=== PATIENT | female | born 1945 | race African-American/Black ===

== ENCOUNTER 2016-11-18 12:48 | Emergency (ER) | payer MEDICARE ==
[~2016-11-18] VITALS: Ht 157.5 cm; Wt 63.5 kg
[2016-11-18 13:58] VITALS: BP 173/98
--- NOTE | 2016-11-18 15:23 | PHYS DOC ---
Past Medical History Past Medical History: Arthritis, Hypertension, Other Additional Past Medical Histor: NEVO FIBROMYTOSIS Past Surgical History: Hysterectomy, Tubal ligation, Other Additional Past Surgical Histo: TUMOR REMOVEDF ROM STOMACH Alcohol Use: None Adult General Chief Complaint Chief Complaint: FOOT INJURY PAIN [facility] HPI Patient is a 71 year old female with a history of neurofibromatosis comes in the emergency room today with complaint of right foot pain secondary to a soft tissue tumor to the plantar surface of her right foot. Patient states that she is called to speak to her primary care doctor but spoke only to the front office nurse and she has not heard back from her. Patient states is been ongoing for approximately a month. Review of Systems Review of Systems Constitutional: Denies fever or chills [] Eyes: Denies change in visual acuity, redness, or eye pain [] HENT: Denies nasal congestion or sore throat [] Respiratory: Denies cough or shortness of breath [] Cardiovascular: No additional information not addressed in HPI [] GI: Denies abdominal pain, nausea, vomiting, bloody stools or diarrhea [] : Denies dysuria or hematuria [] Musculoskeletal: Denies back pain or joint pain [] Integument: Denies rash or skin lesions [] Neurologic: Denies headache, focal weakness or sensory changes [] Endocrine: Denies polyuria or polydipsia [] Allergies Allergies Allergies Uncoded Allergies Type Severity Reaction Last Updated Verified UNKNOWN PAIN MEDICATION (TABLET) Allergy Unknown 11/18/16 Physical Exam Physical Exam Constitutional: Well developed, well nourished, no acute distress, non-toxic appearance. [] HENT: Normocephalic, atraumatic, bilateral external ears normal, oropharynx moist, no oral exudates, nose normal. [] Eyes: PERRLA, EOMI, conjunctiva normal, no discharge. [] Neck: Normal range of motion, no tenderness, supple, no stridor. [] Cardiovascular:Heart rate regular rhythm, no murmur [] Lungs & Thorax: Bilateral breath sounds clear to auscultation [] Abdomen: Bowel sounds normal, soft, no tenderness, no masses, no pulsatile masses. [] Skin: widespread, scattered cutaneous tumors consistent with neurofibromatosis. Back: No tenderness, no CVA tenderness. [] Extremities: Right foot with an approximate 2.5 cm soft tissue tumor to the plantar surface of the first MTPJ of the right foot. There is no inflammation or erythema. There is no purulent drainage Neurologic: Alert and oriented X 3, normal motor function, normal sensory function, no focal deficits noted. [] Psychologic: Affect normal, judgement normal, mood normal. [] Current Patient Data Vital Signs Vital Signs Date Time Temp Pulse Resp B/P Pulse Ox O2 Delivery O2 Flow Rate FiO2 11/18/16 13:58 98 72 22 173/98 98 Room Air 98.0 EKG EKG [] Radiology/Procedures Radiology/Procedures [] Course & Med Decision Making Course & Med Decision Making Pertinent Labs and Imaging studies reviewed. (See chart for details) [] Dragon Disclaimer Dragon Disclaimer This electronic medical record was generated, in whole or in part, using a voice recognition dictation system. Departure Departure Impression: Primary Impression: Foot pain Disposition: 01 HOME, SELF-CARE Condition: GOOD Referrals: UNKNOWN PCP NAME (PCP) Patient Instructions: Musculoskeletal Pain Additional Instructions: 1. As discussed, the pain in your foot is due to the soft tissue tumor. You need to see a mva operator. 2. 2 podiatrists in this area: Archie Yuen and Mynor Pena [phone]. 3. There is no evidence of infection to the soft tissue tumor on the bottom of your foot at this time. Continue to take your medications as prescribed. RADHA CUEVSA Nov 18, 2016 15:23
== END 2016-11-18 15:41 | disposition home or self-care (01) ==
LOC: ER 12:48
DX: M79.671 Pain in right foot (principal); Q85.00 Neurofibromatosis, unspecified; I10 Essential (primary) hypertension; M19.90 Unspecified osteoarthritis, unspecified site
CPT/HCPCS: 99284

== ENCOUNTER 2019-05-31 11:07 | Emergency (ER) | payer MEDICARE, OTHER ==
[~2019-05-31] VITALS: Ht 157.5 cm; Wt 68.9 kg
--- NOTE | 2019-05-31 12:18 | PHYS DOC ---
Past Medical History Past Medical History: Arthritis, Hypertension, Other Additional Past Medical Histor: NEVO FIBROMYTOSIS Past Surgical History: Hysterectomy, Tubal ligation, Other Additional Past Surgical Histo: TUMOR REMOVEDF ROM STOMACH Alcohol Use: None Drug Use: None Adult General Chief Complaint Chief Complaint: OTHER COMPLAINTS HPI HPI Patient is a 73-year-old female who presents with complaint of withdrawing from hydrocodone. Patient states that she has chronic pain and had been on 200 hydrocodone per month and she just recently switched doctors and he decreased her daily dosage to 3 per day, so just 90 tablets per month. She states that that dosage was not adequately managing her pain and she ran out of her medication about a week ago. Patient states that she is feeling very anxious, jittery, nauseated and is having diarrhea. She denies any chest pain or shortness of breath. She states that she feels depressed but has no suicidal ideations. She rates her pain at a 10 out of 10 and states the majority of her pain is in her left hand where she has chronic pain.[] Review of Systems Review of Systems Constitutional: Reports subjective fever[] Respiratory: Denies cough or shortness of breath [] Cardiovascular: No additional information not addressed in HPI [] GI: Denies abdominal pain. Complains of nausea and diarrhea [] Musculoskeletal: Complains of left hand pain [] Neurologic: Denies headache, focal weakness or sensory changes [] All other systems were reviewed and found to be within normal limits, except as documented in this note. Current Medications Current Medications Current Medications Medications (Trade) Dose Ordered Sig/Marlene Start Time Stop Time Status Last Admin Dose Admin Ceftriaxone Sodium (Rocephin) 1 gm 1X ONCE 05/31/19 13:30 05/31/19 13:31 DC 05/31/19 13:39 1 GM Fentanyl Citrate (Fentanyl 2ml Vial) 50 mcg PRN Q15MIN PRN 05/31/19 12:15 06/01/19 12:14 05/31/19 12:49 50 MCG Ondansetron HCl (Zofran) 4 mg 1X ONCE 05/31/19 12:30 05/31/19 12:31 DC 05/31/19 12:48 4 MG Sodium Chloride 1,000 ml @ 1,000 mls/hr Q1H 05/31/19 12:30 05/31/19 13:29 DC 05/31/19 12:50 1,000 MLS/HR Allergies Allergies Allergies Uncoded Allergies Type Severity Reaction Last Updated Verified UNKNOWN PAIN MEDICATION (TABLET) Allergy Unknown 11/18/16 Physical Exam Physical Exam Constitutional: Well developed, well nourished, no acute distress, non-toxic appearance. [] HENT: Normocephalic, atraumatic, bilateral external ears normal, oropharynx moist, no oral exudates, nose normal. [] Eyes: PERRLA, EOMI, conjunctiva normal, no discharge. [] Neck: Normal range of motion, no tenderness, supple, no stridor. [] Cardiovascular: Regular rate and rhythm[] Lungs & Thorax: Bilateral breath sounds clear to auscultation [] Abdomen: Bowel sounds normal, soft, no tenderness. [] Skin: Warm, dry, no erythema, no rash. [] Extremities: No cyanosis, no clubbing, ROM intact. [] Neurologic: Alert and oriented X 3, no focal deficits noted. [] Current Patient Data Vital Signs Vital Signs Date Time Temp Pulse Resp B/P (MAP) Pulse Ox O2 Delivery O2 Flow Rate FiO2 05/31/19 13:39 16 99 05/31/19 13:35 62 163/91 (115) Room Air 05/31/19 11:42 98.7 98.7 Lab Values Laboratory Tests Test 05/31/19 12:15 05/31/19 12:27 Urine Color Yellow Urine Clarity Cloudy Urine pH 5.5 Urine Specific [place] >=1.030 Urine Protein Negative mg/dL (NEG-TRACE) Urine Glucose (UA) Negative mg/dL (NEG) Urine Ketones (Stick) Negative mg/dL (NEG) Urine Blood Trace (NEG) Urine Nitrite Negative (NEG) Urine Bilirubin Negative (NEG) Urine Urobilinogen Dipstick 0.2 mg/dL (0.2 mg/dL) Urine Leukocyte Esterase Large (NEG) Urine RBC 3-5 /HPF (0-2) Urine WBC 20-40 /HPF (0-4) Urine Squamous Epithelial Cells Many /LPF Urine Bacteria Moderate /HPF (0-FEW) Urine Mucus Mod /LPF White Blood Count 4.2 x10^3/uL (4.0-11.0) Red Blood Count 4.22 x10^6/uL (3.50-5.40) Hemoglobin 11.9 g/dL (12.0-15.5) L Hematocrit 35.7 % (36.0-47.0) L Mean Corpuscular Volume 85 fL (79-100) Mean Corpuscular Hemoglobin 28 pg (25-35) Mean Corpuscular Hemoglobin Concent 33 g/dL (31-37) Red Cell Distribution Width 14.7 % (11.5-14.5) H Platelet Count 219 x10^3/uL (140-400) Neutrophils (%) (Auto) 40 % (31-73) Lymphocytes (%) (Auto) 48 % (24-48) Monocytes (%) (Auto) 10 % (0-9) H Eosinophils (%) (Auto) 1 % (0-3) Basophils (%) (Auto) 1 % (0-3) Neutrophils # (Auto) 1.7 x10^3/uL (1.8-7.7) L Lymphocytes # (Auto) 2.0 x10^3/uL (1.0-4.8) Monocytes # (Auto) 0.4 x10^3/uL (0.0-1.1) Eosinophils # (Auto) 0.0 x10^3/uL (0.0-0.7) Basophils # (Auto) 0.0 x10^3/uL (0.0-0.2) Sodium Level 143 mmol/L (136-145) Potassium Level 3.4 mmol/L (3.5-5.1) L Chloride Level 110 mmol/L (98-107) H Carbon Dioxide Level 25 mmol/L (21-32) Anion Gap 8 (6-14) Blood Urea Nitrogen 6 mg/dL (7-20) L Creatinine 0.6 mg/dL (0.6-1.0) Estimated GFR (Cockcroft-Gault) 117.9 BUN/Creatinine Ratio 10 (6-20) Glucose Level 95 mg/dL (70-99) Calcium Level 8.7 mg/dL (8.5-10.1) Total Bilirubin 0.7 mg/dL (0.2-1.0) Aspartate Amino Transferase (AST) 14 U/L (15-37) L Alanine Aminotransferase (ALT) 14 U/L (14-59) Alkaline Phosphatase 55 U/L (46-116) Total Protein 7.0 g/dL (6.4-8.2) Albumin 3.4 g/dL (3.4-5.0) Albumin/Globulin Ratio 0.9 (1.0-1.7) L Lipase 35 U/L (73-393) L Laboratory Tests 05/31/19 12:27 Laboratory Tests 05/31/19 12:27 EKG EKG [] Interpretation Time: EKG demonstrates sinus rhythm with rate of 59. Radiology/Procedures Radiology/Procedures [] Impressions: PROCEDURE: CT HEAD WO CONTRAST CT HEAD WO CONTRAST Indication: Headache. Fever and body aches. Withdrawal symptoms. Exposure: One or more of the following individualized dose reduction techniques were utilized for this examination: 1. Automated exposure control 2. Adjustment of the mA and/or kV according to patient size 3. Use of iterative reconstruction technique. Technique: Standard imaging without intravenous contrast. Comparison: None FINDINGS: No acute intracranial hemorrhage, mass effect, midline shift or abnormal extra-axial fluid collection. Mild prominence of ventricles and sulci compatible with atrophy. Low-density in the white matter bilaterally, a nonspecific finding, but which is commonly due to chronic small vessel ischemic disease in a patient of this age. Visualized orbits appear unremarkable. Numerous small nodules are seen throughout the scalp soft tissues. Visualized sinuses are clear. No evidence of acute skull abnormality. IMPRESSION: 1. No evidence of acute intracranial hemorrhage. 2. Innumerable small nodules identified throughout the visualized scalp. These are presumably related to the patient's history of neurofibromatosis. Electronically signed by: Napoleon Canseco MD (05/31/2019 1:46 PM) [facility] Course & Med Decision Making Course & Med Decision Making Pertinent Labs and Imaging studies reviewed. (See chart for details) [] Dragon Disclaimer Dragon Disclaimer This electronic medical record was generated, in whole or in part, using a voice recognition dictation system. Departure Departure Impression: Primary Impression: UTI (urinary tract infection) Additional Impression: Chronic pain Disposition: 01 HOME, SELF-CARE Condition: STABLE Referrals: CONRADO KAHN (PCP) Patient Instructions: Chronic Pain, Urinary Tract Infection Scripts Ciprofloxacin Hcl (CIPROFLOXACIN HCL) 500 Mg Tablet 1 TAB PO BID, #14 TAB Prov: OXANA RAYGOZA Jr. DO 05/31/19 Oxycodone/Apap 5-325 (PERCOCET 5-325 MG TABLET ) 1 Each Tablet 1 EACH PO Q6HRS PRN for PAIN, #12 TAB pain Prov: OXANA RAYGOZA Jr. DO 05/31/19 Problem Qualifiers Primary Impression: UTI (urinary tract infection) Urinary tract infection type: site unspecified Hematuria presence: without hematuria Qualified Codes: N39.0 - Urinary tract infection, site not specified Additional Impression: Chronic pain Chronic pain type: other chronic pain Qualified Codes: G89.29 - Other chronic pain OXANA RAYGOZA Jr. DO May 31, 2019 12:18
[2019-05-31 12:23] LABS: BILIRUBIN,URINE NEGATIVE (NEG); CLARITY,URINE CLOUDY; COLOR,URINE YELLOW; NITRITE,URINE NEGATIVE (NEG); PH,URINE 5.5; PROTEIN,URINE NEGATIVE (NEG-TRACE); UROBILINOGEN,URINE 0.2 mg/dL (0.2 mg/dL)
[2019-05-31] MEDS ORDERED: ONDANSETRON PF 4 MG/2 ML VIAL. IV ONE (12:30)
[2019-05-31] MEDS ORDERED: IV NORMAL SALINE 1000ML BAG 1,000 ML IV SCH (12:30)
[2019-05-31 12:34] LABS: SQUAMOUS EPITHELIAL CELL,UR MANY /LPF
[2019-05-31 12:35] LABS: BACTERIA,URINE MODERATE /HPF (0-FEW); WBC,URINE 20-40 /HPF (0-4)
[2019-05-31 12:45] LABS: BASO % 1 % (0-3); EOS % 1 % (0-3); HEMATOCRIT 35.7 % (36.0-47.0); HEMOGLOBIN 11.9 g/dL (12.0-15.5); LYMPH % 48 % (24-48); MEAN CORPUSCULAR HEMOGLOBIN 28 pg (25-35); MEAN CORPUSCULAR HGB CONC 33 g/dL (31-37); MEAN CORPUSCULAR VOLUME 85 fL (79-100); MONO # 0.4 x10^3/uL (0.0-1.1); MONO % 10 % (0-9); NEUT # 1.7 x10^3/uL (1.8-7.7); NEUT % 40 % (31-73); PLATELET COUNT 219 x10^3/uL (140-400); RED BLOOD COUNT 4.22 x10^6/uL (3.50-5.40); RED CELL DISTRIBUTION WIDTH 14.7 % (11.5-14.5); WHITE BLOOD COUNT 4.2 x10^3/uL (4.0-11.0)
[2019-05-31] MEDS: fentaNYL PF VIAL 100 MCG/2 ML VIAL IV PRN ×2 (12:49→15:00)
[2019-05-31 13:14] LABS: CALCIUM 8.7 mg/dL (8.5-10.1); CREATININE 0.6 mg/dL (0.6-1.0); GFR 117.9; POTASSIUM 3.4 mmol/L (3.5-5.1)
[2019-05-31 13:16] LABS: ALBUMIN 3.4 g/dL (3.4-5.0); ALBUMIN/GLOBULIN RATIO 0.9 (1.0-1.7); TOTAL BILIRUBIN 0.7 mg/dL (0.2-1.0)
[2019-05-31] MEDS ORDERED: cefTRIAXone IV Push 1 GM VIAL. IVP ONE (13:30)
--- NOTE | 2019-05-31 13:48 | RAD ---
CT HEAD WO CONTRAST Indication: Headache. Fever and body aches. Withdrawal symptoms. Exposure: One or more of the following individualized dose reduction techniques were utilized for this examination: 1. Automated exposure control 2. Adjustment of the mA and/or kV according to patient size 3. Use of iterative reconstruction technique. Technique: Standard imaging without intravenous contrast. Comparison: None FINDINGS: No acute intracranial hemorrhage, mass effect, midline shift or abnormal extra-axial fluid collection. Mild prominence of ventricles and sulci compatible with atrophy. Low-density in the white matter bilaterally, a nonspecific finding, but which is commonly due to chronic small vessel ischemic disease in a patient of this age. Visualized orbits appear unremarkable. Numerous small nodules are seen throughout the scalp soft tissues. Visualized sinuses are clear. No evidence of acute skull abnormality. IMPRESSION: 1. No evidence of acute intracranial hemorrhage. 2. Innumerable small nodules identified throughout the visualized scalp. These are presumably related to the patient's history of neurofibromatosis. Electronically signed by: Napoleon Canseco MD (05/31/2019 1:46 PM) [id number]
[2019-05-31] MEDS ORDERED: OXYC1TAB15 PO (14:35)
[2019-05-31] MEDS ORDERED: CIPR500T PO (14:35)
[2019-05-31 15:00] VITALS: BP 169/98
--- NOTE | 2019-05-31 15:36 | EKG ---
[facility] [address] [place] [address] Test Date: 2019-05-31 Test Time: 13:11:38 Pat Name: ALBERT HOLCOMB Department: Room: Gender: F Med Surg Nurse: : 1945 Requested By: OXANA RAYGOZA Order Number: [id number] Reading MD: Karthik Ellis MD Measurements Intervals [place] Rate: 59 P: 0 MN: 162 QRS: -15 QRSD: 90 T: 12 QT: 440 QTc: 436 Interpretive Statements SINUS RHYTHM Electronically Signed On 06-11-2019 10:12:08 CDT by Karthik Ellis MD
== END 2019-05-31 15:20 | disposition home or self-care (01) ==
LOC: ER 11:07
DX: G89.29 Other chronic pain (principal); N39.0 Urinary tract infection, site not specified; R19.7 Diarrhea, unspecified; R11.0 Nausea; M79.642 Pain in left hand; M19.90 Unspecified osteoarthritis, unspecified site; I10 Essential (primary) hypertension; Z90.710 Acquired absence of both cervix and uterus; Z98.51 Tubal ligation status
CPT/HCPCS: 36415; 70450; 80053; 81001; 83690; 85025; 87086; 93005; 96361; 96374; 96375; 99285; J0696; J2405; J3010; J7030

== ENCOUNTER 2019-06-25 14:33 | Emergency (ER) | payer OTHER ==
[~2019-06-25] VITALS: Ht 165.1 cm; Wt 68.0 kg
[~2019-06-25 14:33] MED LIST: CIPR500T PO; OXYC1TAB15 PO
[2019-06-25] MEDS ORDERED: fentaNYL PF VIAL 100 MCG/2 ML VIAL IV STA (16:05)
[2019-06-25] MEDS ORDERED: ONDANSETRON PF 4 MG/2 ML VIAL. IV ONE (16:15)
[2019-06-25] MEDS ORDERED: IV NORMAL SALINE 1000ML BAG 1,000 ML IV ONE (16:15)
[2019-06-25 16:16] LABS: BASO # 0.1 x10^3/uL (0.0-0.2); BASO % 1 % (0-3); EOS % 0 % (0-3); HEMATOCRIT 39.5 % (36.0-47.0); HEMOGLOBIN 12.9 g/dL (12.0-15.5); LYMPH # 1.9 x10^3/uL (1.0-4.8); LYMPH % 37 % (24-48); MEAN CORPUSCULAR HEMOGLOBIN 28 pg (25-35); MEAN CORPUSCULAR HGB CONC 33 g/dL (31-37); MEAN CORPUSCULAR VOLUME 84 fL (79-100); MONO # 0.4 x10^3/uL (0.0-1.1); MONO % 8 % (0-9); NEUT # 2.7 x10^3/uL (1.8-7.7); NEUT % 53 % (31-73); PLATELET COUNT 273 x10^3/uL (140-400); RED BLOOD COUNT 4.68 x10^6/uL (3.50-5.40); RED CELL DISTRIBUTION WIDTH 14.9 % (11.5-14.5)
[2019-06-25 16:27] LABS: CREATININE 0.6 mg/dL (0.6-1.0); GFR 117.9; POTASSIUM 3.6 mmol/L (3.5-5.1)
[2019-06-25] MEDS ORDERED: IOHEXOL 300 MG/ML 100ML VIAL. IV ONE (16:30)
[2019-06-25] MEDS ORDERED: CONTRAST GIVEN. MC PRN (16:30)
--- NOTE | 2019-06-25 16:31 | PHYS DOC ---
Past Medical History Past Medical History: Arthritis, Hypertension, Other Additional Past Medical Histor: NEVO FIBROMYTOSIS (NAPOLEON GRAVES APRN) Past Surgical History: Hysterectomy, Tubal ligation, Other Additional Past Surgical Histo: TUMOR REMOVED FROM STOMACH (NAPOLEON GRAVES APRN) Alcohol Use: None Drug Use: None (NAPOLEON GRAVES APRN) Attending Signature I have participated in the care of this patient and I have reviewed and agree with all pertinent clinical information above including history, exam, and recommendations. (JAMEY RIVERA MD) Adult General Chief Complaint Chief Complaint: WEAKNESS/GENERALIZED HPI HPI Patient is a 73 year old female that presents to the emergency Department with multiple complaints. The patient has a history of neurofibromitosis. The patient states she ran out of her pain medicine after her doctor stop prescribing to her. She states that she also is been having weakness since yesterday. She states she felt hot and cold, and states she's been having abdominal pain. The patient rates her pain as 8 out of 10 in severity. The patient also states she's been having difficulty taking full breaths. (NAPOLEON GRAVES APRN) Review of Systems Review of Systems Constitutional: Denies fever or chills. Reports weakness. Eyes: Denies change in visual acuity, redness, or eye pain [] HENT: Denies nasal congestion or sore throat [] Respiratory: Reports SOB. Denies cough. Cardiovascular: No additional information not addressed in HPI [] GI: Reports abdominal pain, nausea, vomiting, Denies bloody stools or diarrhea [] : Denies dysuria or hematuria [] Musculoskeletal: Denies back pain or joint pain [] Integument: Denies rash or skin lesions [] Neurologic: Denies headache, focal weakness or sensory changes [] Endocrine: Denies polyuria or polydipsia [] Complete systems were reviewed and found to be within normal limits, except as documented in this note. (NAPOLEON GRAVES APRN) Current Medications Current Medications Current Medications Medications (Trade) Dose Ordered Sig/Malrene Start Time Stop Time Status Last Admin Dose Admin Fentanyl Citrate (Fentanyl 2ml Vial) 100 mcg 1X STAT 06/25/19 16:05 06/25/19 16:08 DC 06/25/19 16:36 100 MCG Info (CONTRAST GIVEN -- Rx MONITORING) 1 each PRN DAILY PRN 06/25/19 16:30 06/25/19 19:13 DC Iohexol (Omnipaque 300 Mg/ml) 75 ml 1X ONCE 06/25/19 16:30 06/25/19 16:31 DC 06/25/19 16:30 75 ML Ondansetron HCl (Zofran) 4 mg 1X ONCE 06/25/19 16:15 06/25/19 16:16 DC 06/25/19 16:35 4 MG Sodium Chloride 1,000 ml @ 1,000 mls/hr 1X ONCE 06/25/19 16:15 06/25/19 17:14 DC 06/25/19 16:35 1,000 MLS/HR (JAMEY RIVERA MD) Allergies Allergies Allergies Uncoded Allergies Type Severity Reaction Last Updated Verified UNKNOWN PAIN MEDICATION (TABLET) Allergy Unknown 11/18/16 (JAMEY RIVERA MD) Physical Exam Physical Exam Constitutional: Well developed, well nourished, no acute distress, non-toxic appearance. [] HENT: Normocephalic, atraumatic, bilateral external ears normal, oropharynx moist, no oral exudates, nose normal. [] Eyes: PERRLA, EOMI, conjunctiva normal, no discharge. [] Neck: Normal range of motion, no tenderness, supple, no stridor. [] Cardiovascular:Heart rate regular rhythm, no murmur [] Lungs & Thorax: Bilateral breath sounds clear to auscultation but diminished. Abdomen: Bowel sounds normal, soft, diffuse tenderness, no masses, no pulsatile masses. [] Skin: Warm, dry, no erythema, no rash. [] Back: No tenderness, no CVA tenderness. [] Extremities: No tenderness, no cyanosis, no clubbing, ROM intact, no edema. [] Neurologic: Alert and oriented X 3, normal motor function, normal sensory function, no focal deficits noted. [] Psychologic: Affect normal, judgement normal, mood normal. [] (NAPOLEON GRAVES APRN) Current Patient Data Vital Signs Vital Signs Date Time Temp Pulse Resp B/P (MAP) Pulse Ox O2 Delivery O2 Flow Rate FiO2 06/25/19 18:00 78 16 100 06/25/19 16:36 Room Air 06/25/19 15:00 97.8 169/96 (120) 97.8 (JAMEY RIVERA MD) Lab Values Laboratory Tests Test 06/25/19 15:40 06/25/19 16:30 White Blood Count 5.0 x10^3/uL (4.0-11.0) Red Blood Count 4.68 x10^6/uL (3.50-5.40) Hemoglobin 12.9 g/dL (12.0-15.5) Hematocrit 39.5 % (36.0-47.0) Mean Corpuscular Volume 84 fL (79-100) Mean Corpuscular Hemoglobin 28 pg (25-35) Mean Corpuscular Hemoglobin Concent 33 g/dL (31-37) Red Cell Distribution Width 14.9 % (11.5-14.5) H Platelet Count 273 x10^3/uL (140-400) Neutrophils (%) (Auto) 53 % (31-73) Lymphocytes (%) (Auto) 37 % (24-48) Monocytes (%) (Auto) 8 % (0-9) Eosinophils (%) (Auto) 0 % (0-3) Basophils (%) (Auto) 1 % (0-3) Neutrophils # (Auto) 2.7 x10^3/uL (1.8-7.7) Lymphocytes # (Auto) 1.9 x10^3/uL (1.0-4.8) Monocytes # (Auto) 0.4 x10^3/uL (0.0-1.1) Eosinophils # (Auto) 0.0 x10^3/uL (0.0-0.7) Basophils # (Auto) 0.1 x10^3/uL (0.0-0.2) Sodium Level 145 mmol/L (136-145) Potassium Level 3.6 mmol/L (3.5-5.1) Chloride Level 106 mmol/L (98-107) Carbon Dioxide Level 26 mmol/L (21-32) Anion Gap 13 (6-14) Blood Urea Nitrogen 10 mg/dL (7-20) Creatinine 0.6 mg/dL (0.6-1.0) Estimated GFR (Cockcroft-Gault) 117.9 BUN/Creatinine Ratio 17 (6-20) Glucose Level 102 mg/dL (70-99) H Calcium Level 9.0 mg/dL (8.5-10.1) Total Bilirubin 0.9 mg/dL (0.2-1.0) Aspartate Amino Transferase (AST) 14 U/L (15-37) L Alanine Aminotransferase (ALT) 11 U/L (14-59) L Alkaline Phosphatase 70 U/L (46-116) Total Protein 7.8 g/dL (6.4-8.2) Albumin 4.0 g/dL (3.4-5.0) Albumin/Globulin Ratio 1.1 (1.0-1.7) Urine Collection Type Unknown Urine Color Yellow Urine Clarity Clear Urine pH 5.5 Urine Specific [place] 1.020 Urine Protein Negative mg/dL (NEG-TRACE) Urine Glucose (UA) Negative mg/dL (NEG) Urine Ketones (Stick) Trace mg/dL (NEG) Urine Blood Negative (NEG) Urine Nitrite Negative (NEG) Urine Bilirubin Negative (NEG) Urine Urobilinogen Dipstick 0.2 mg/dL (0.2 mg/dL) Urine Leukocyte Esterase Negative (NEG) Urine RBC Occ /HPF (0-2) Urine WBC Occ /HPF (0-4) Urine Squamous Epithelial Cells Many /LPF Urine Bacteria Few /HPF (0-FEW) Urine Mucus Marked /LPF Laboratory Tests 06/25/19 15:40 Laboratory Tests 06/25/19 15:40 (JAMEY RIVERA MD) EKG EKG [] (NAPOLEON GRAVES APRN) Radiology/Procedures Radiology/Procedures []IMAGING REPORT Signed PATIENT: ALBERT HOLCOMB V ACCOUNT: [id number] : 1945 LOCATION: ER AGE: 73 SEX: F EXAM STATUS: REG ER ORD. PHYSICIAN: NAPOLEON GRAVES APRN REASON: abd pain PROCEDURE: CT ABD PELV W/ IV CONTRST ONLY CT ABD PELV W/ IV CONTRST ONLY Indication: Abdominal pain. History of neurofibromatosis. Exposure: One or more of the following individualized dose reduction techniques were utilized for this examination: 1. Automated exposure control 2. Adjustment of the mA and/or kV according to patient size 3. Use of iterative reconstruction technique. Technique: Intravenous contrast was given. No oral contrast per request. Findings: Numerous widespread soft tissue nodules are identified throughout, subcutaneously and at the skin. There are also numerous areas of skin thickening. Lung bases are clear. Coronary artery calcifications are identified. No evidence of liver lesion. Spleen not enlarged. Partial fatty atrophy of the pancreas without evidence of acute abnormality. No evidence of adrenal mass. Kidneys demonstrate symmetric enhancement. No hydronephrosis. Low-density lesion in the upper pole the left kidney measures 2 cm and 18 Hounsfield units, most likely a cyst. No calcified gallstone. Mild gallbladder wall thickening. No gross gallbladder distention. No pericholecystic fluid or stranding. The aorta is mildly calcified and tortuous without evidence of aneurysm. No significant retroperitoneal, mesenteric or inguinal lymph node enlargement. Surgical small sutures at the stomach. No significant small bowel distention. Wall thickening of the rectum and distal sigmoid colon. Milder wall thickening of the descending and proximal sigmoid colon which may just be due to lack of distention. No acute paracolonic fatty stranding is seen. The appendix is normal. There appears to be some surgical suture within bowel. Midline anterior abdominal wall hernia containing a single segment of protruding bowel. No evidence of ascites. No evidence of pneumoperitoneum. Urinary bladder appears grossly unremarkable, not very distended. No evidence of pelvic mass. Degenerative changes of the spine. Transitional anatomy at the lumbosacral junction with what is counted as a lumbarized S1 segment. Mild anterior subluxation of what is considered L4 and L5. Vertebral body height is maintained. Soft tissue lesion is identified within the right neural foramen of what is considered S2 with smooth indolent expansion of the foramen which measures 2.5 cm diameter. This is compatible with a mass such as a neurofibroma. IMPRESSION: 1. Soft tissue mass within the right upper sacral neural foramen, likely S2 suspicious for neurofibroma, with chronic appearing expansion of the neural foramen. MR could further evaluate as indicated. 2. Numerous soft tissue and skin nodules and areas of thickening, likely related to neurofibromatosis. 3. Small left renal lesion, most likely a cyst. 4. Mild gallbladder wall thickening, uncertain significance, correlate for cholecystitis. No evidence of calcified stone or gross gallbladder distention. 5. Wall thickening of the rectum and distal sigmoid colon, could indicate mild colitis. Mild wall thickening of the more proximal colon may just be due to nondistention. 6. Findings were discussed with Dr. Graves in the emergency room at the time of this report. Electronically signed by: Napoleon Canseco MD (06/25/2019 5:42 PM) [facility] DICTATED and SIGNED BY: NAPOLEON CANSECO MD DATE: 06/25/19 174 (NAPOLEON GRAVES APRN) Course & Med Decision Making Course & Med Decision Making Pertinent Labs and Imaging studies reviewed. (See chart for details) Will get labs, UA, Chest x-ray, CT, and give supportive care. CT is unremarkable for acute changes. Might have mild colitis. Does not have RUQ abdominal pain, Cholecystitis is unlikely. Labs look unremarkable. Chest X-ray is unremarkable for acute changes. Will d/c home. (NAPOLEON GRAVES APRN) Dragon Disclaimer Dragon Disclaimer This electronic medical record was generated, in whole or in part, using a voice recognition dictation system. (NAPOLEON GRAVES APRN) Departure Departure Impression: Primary Impression: Weakness Disposition: HOME, SELF-CARE Condition: STABLE Referrals: CONRADO KAHN (PCP) Patient Instructions: Weakness Additional Instructions: Thank you for visiting [facility]. We appreciate you trusting us with your care. If any additional problems come up don't hesitate to return to visit us. Please follow up with your primary care provider so they can plan add itional care if needed and know about the problem that you had. If symptoms worsen come back to the Emergency Department. Any concerning symptoms that start such as chest pain, shortness of air, weakness or numbness on one side of the body, running high fevers or any other concerning symptoms return to the ER. NAPOLEON GRAVES APRN Jun 25, 2019 16:31 JAMEY RIVERA MD Jun 28, 2019 06:17
[2019-06-25 16:32] LABS: ALBUMIN/GLOBULIN RATIO 1.1 (1.0-1.7); TOTAL BILIRUBIN 0.9 mg/dL (0.2-1.0); TOTAL PROTEIN 7.8 g/dL (6.4-8.2)
[2019-06-25 16:36] LABS: BILIRUBIN,URINE NEGATIVE (NEG); CLARITY,URINE CLEAR; COLOR,URINE YELLOW; NITRITE,URINE NEGATIVE (NEG); PH,URINE 5.5; PROTEIN,URINE NEGATIVE (NEG-TRACE); UROBILINOGEN,URINE 0.2 mg/dL (0.2 mg/dL)
[2019-06-25 16:55] LABS: BACTERIA,URINE FEW /HPF (0-FEW); RBC,URINE OCC /HPF (0-2); SQUAMOUS EPITHELIAL CELL,UR MANY /LPF; WBC,URINE OCC /HPF (0-4)
--- NOTE | 2019-06-25 17:46 | RAD ---
CT ABD PELV W/ IV CONTRST ONLY Indication: Abdominal pain. History of neurofibromatosis. Exposure: One or more of the following individualized dose reduction techniques were utilized for this examination: 1. Automated exposure control 2. Adjustment of the mA and/or kV according to patient size 3. Use of iterative reconstruction technique. Technique: Intravenous contrast was given. No oral contrast per request. Findings: Numerous widespread soft tissue nodules are identified throughout, subcutaneously and at the skin. There are also numerous areas of skin thickening. Lung bases are clear. Coronary artery calcifications are identified. No evidence of liver lesion. Spleen not enlarged. Partial fatty atrophy of the pancreas without evidence of acute abnormality. No evidence of adrenal mass. Kidneys demonstrate symmetric enhancement. No hydronephrosis. Low-density lesion in the upper pole the left kidney measures 2 cm and 18 Hounsfield units, most likely a cyst. No calcified gallstone. Mild gallbladder wall thickening. No gross gallbladder distention. No pericholecystic fluid or stranding. The aorta is mildly calcified and tortuous without evidence of aneurysm. No significant retroperitoneal, mesenteric or inguinal lymph node enlargement. Surgical small sutures at the stomach. No significant small bowel distention. Wall thickening of the rectum and distal sigmoid colon. Milder wall thickening of the descending and proximal sigmoid colon which may just be due to lack of distention. No acute paracolonic fatty stranding is seen. The appendix is normal. There appears to be some surgical suture within bowel. Midline anterior abdominal wall hernia containing a single segment of protruding bowel. No evidence of ascites. No evidence of pneumoperitoneum. Urinary bladder appears grossly unremarkable, not very distended. No evidence of pelvic mass. Degenerative changes of the spine. Transitional anatomy at the lumbosacral junction with what is counted as a lumbarized S1 segment. Mild anterior subluxation of what is considered L4 and L5. Vertebral body height is maintained. Soft tissue lesion is identified within the right neural foramen of what is considered S2 with smooth indolent expansion of the foramen which measures 2.5 cm diameter. This is compatible with a mass such as a neurofibroma. IMPRESSION: 1. Soft tissue mass within the right upper sacral neural foramen, likely S2 suspicious for neurofibroma, with chronic appearing expansion of the neural foramen. MR could further evaluate as indicated. 2. Numerous soft tissue and skin nodules and areas of thickening, likely related to neurofibromatosis. 3. Small left renal lesion, most likely a cyst. 4. Mild gallbladder wall thickening, uncertain significance, correlate for cholecystitis. No evidence of calcified stone or gross gallbladder distention. 5. Wall thickening of the rectum and distal sigmoid colon, could indicate mild colitis. Mild wall thickening of the more proximal colon may just be due to nondistention. 6. Findings were discussed with Dr. Maier in the emergency room at the time of this report. Electronically signed by: Napoleon Canseco MD (06/25/2019 5:42 PM) [facility]
[2019-06-25 18:00] VITALS: BP 174/95
--- NOTE | 2019-06-25 20:15 | RAD ---
PA and lateral chest radiographs 06/25/2019 CLINICAL HISTORY: Shortness of breath. History of neurofibromatosis. PA and lateral digital radiographs of the chest were obtained. No previous studies are available for comparison. The cardiac silhouette is borderline enlarged. The thoracic aorta is tortuous. No acute pulmonary infiltrate is seen. No pneumothorax or pleural effusion is seen. Very mild S-shaped curvature of the thoracolumbar spine is noted. Multiple mass lesions are seen throughout the neck and soft tissues of the chest consistent with the patient's history of neurofibromatosis. IMPRESSION: No acute abnormality is seen. Electronically signed by: Kingston Chávez MD (06/25/2019 8:12 PM) [facility]
== END 2019-06-25 18:50 | disposition home or self-care (01) ==
LOC: ER 14:33
DX: R53.1 Weakness (principal); R10.84 Generalized abdominal pain; R11.2 Nausea with vomiting, unspecified; I10 Essential (primary) hypertension; Z90.710 Acquired absence of both cervix and uterus; Z98.51 Tubal ligation status
CPT/HCPCS: 36415; 71046; 74177; 80053; 81001; 85025; 96361; 96374; 96375; 99285; J2405; J3010; J7030; Q9967

== ENCOUNTER 2019-07-13 18:46 | Inpatient (IN) | payer OTHER ==
[~2019-07-13] VITALS: Ht 162.6 cm; Wt 69.9 kg
[2019-07-13] MEDS ORDERED: ONDANSETRON PF 4 MG/2 ML VIAL. IV ONE (20:00)
[2019-07-13] MEDS ORDERED: ASPIRIN CHEWABLE 81 MG TABLET. PO ONE (20:00)
[2019-07-13] MEDS: MORPHINE SULFATE 2 MG/ML VIAL. IV/SQ PRN ×2 (20:06→21:54)
[2019-07-13 20:19] LABS: BASO % 1 % (0-3); EOS % 1 % (0-3); HEMATOCRIT 33.2 % (36.0-47.0); HEMOGLOBIN 10.7 g/dL (12.0-15.5); LYMPH # 2.6 x10^3/uL (1.0-4.8); LYMPH % 50 % (24-48); MEAN CORPUSCULAR HEMOGLOBIN 27 pg (25-35); MEAN CORPUSCULAR HGB CONC 32 g/dL (31-37); MEAN CORPUSCULAR VOLUME 85 fL (79-100); MONO # 0.6 x10^3/uL (0.0-1.1); MONO % 11 % (0-9); NEUT % 38 % (31-73); PLATELET COUNT 226 x10^3/uL (140-400); RED BLOOD COUNT 3.91 x10^6/uL (3.50-5.40); WHITE BLOOD COUNT 5.2 x10^3/uL (4.0-11.0)
--- NOTE | 2019-07-13 20:34 | RAD ---
Indication:Chest pain. TECHNIQUE:Portable AP chest X-ray COMPARISON: 06/25/2019 FINDINGS: Heart is normal in size. Again seen are multiple soft tissue nodules projecting over the chest in the soft tissue and lung wiley. No pneumothorax or pleural effusion. Visualized bony thorax within normal limits. IMPRESSION: No acute pulmonary process. Multiple soft tissue nodules compatible with reported history of neurofibromatosis. Electronically signed by: Oren Hollingsworth DO (07/13/2019 8:31 PM) [facility]
--- NOTE | 2019-07-13 21:08 | PHYS DOC ---
Past Medical History Past Medical History: Arthritis, Hypertension, Other Additional Past Medical Histor: NEUROFIBROMYTOSIS Past Surgical History: Hysterectomy, Tubal ligation, Other Additional Past Surgical Histo: TUMOR REMOVED FROM STOMACH Alcohol Use: None Drug Use: None Adult General Chief Complaint Chief Complaint: PAIN CONTROL HPI HPI Patient is a 73-year-old female who presents with complaint of chest pain that started earlier this morning. She describes it as pressure on the left side of her chest. She states that it does radiate to her left shoulder. She does admit to some intermittent nausea but is had no vomiting. She also indicates that she has pain that is chronic in her left hand and states that she ran out of hydrocodone a couple of weeks back. She states that she had been chronically on the medication until her doctor took her off of her pain medications a couple of weeks ago. She denies any diaphoresis. She also denies any fever. Patient does indicate that she has had some hot and cold spells. She also admits to mild headache. She rates the pain in her chest at a 6 out of 10 and rates the pain in her left hand at a 10 out of 10.[] Review of Systems Review of Systems Constitutional: Denies fever or chills [] Respiratory: Denies cough or shortness of breath [] Cardiovascular: No additional information not addressed in HPI [] Musculoskeletal: Denies back pain or joint pain [] Neurologic: Complains of headache without focal weakness or sensory changes [] All other systems were reviewed and found to be within normal limits, except as documented in this note. Current Medications Current Medications Current Medications Medications (Trade) Dose Ordered Sig/Marlene Start Time Stop Time Status Last Admin Dose Admin Aspirin (Children'S Aspirin) 324 mg 1X ONCE 07/13/19 20:00 07/13/19 20:01 DC 07/13/19 20:05 324 MG Morphine Sulfate (Morphine Sulfate) 2 mg PRN Q15MIN PRN 07/13/19 19:15 07/14/19 19:14 07/13/19 21:54 2 MG Ondansetron HCl (Zofran) 4 mg 1X ONCE 07/13/19 20:00 07/13/19 20:01 DC 07/13/19 20:05 4 MG Allergies Allergies Allergies Uncoded Allergies Type Severity Reaction Last Updated Verified UNKNOWN PAIN MEDICATION (TABLET) Allergy Intermediate 07/13/19 Physical Exam Physical Exam Constitutional: Well developed, well nourished, no acute distress, non-toxic appearance. [] HENT: Normocephalic, atraumatic, bilateral external ears normal, oropharynx mois t, no oral exudates, nose normal. [] Eyes: PERRLA, EOMI, conjunctiva normal, no discharge. [] Neck: Normal range of motion, no tenderness, supple, no stridor. [] Cardiovascular: Regular rate and rhythm[] Lungs & Thorax: Bilateral breath sounds clear to auscultation [] Abdomen: Bowel sounds normal, soft, no tenderness. [] Skin: Warm, dry. [] Extremities: No cyanosis, no clubbing, ROM intact. [] Neurologic: Alert and oriented X 3, no focal deficits noted. [] Current Patient Data Vital Signs Vital Signs Date Time Temp Pulse Resp B/P (MAP) Pulse Ox O2 Delivery O2 Flow Rate FiO2 07/13/19 21:54 17 98 Room Air 07/13/19 18:50 98.1 78 171/86 (114) 98.1 Lab Values Laboratory Tests Test 07/13/19 20:00 07/13/19 21:20 White Blood Count 5.2 x10^3/uL (4.0-11.0) Red Blood Count 3.91 x10^6/uL (3.50-5.40) Hemoglobin 10.7 g/dL (12.0-15.5) L Hematocrit 33.2 % (36.0-47.0) L Mean Corpuscular Volume 85 fL (79-100) Mean Corpuscular Hemoglobin 27 pg (25-35) Mean Corpuscular Hemoglobin Concent 32 g/dL (31-37) Red Cell Distribution Width 15.0 % (11.5-14.5) H Platelet Count 226 x10^3/uL (140-400) Neutrophils (%) (Auto) 38 % (31-73) Lymphocytes (%) (Auto) 50 % (24-48) H Monocytes (%) (Auto) 11 % (0-9) H Eosinophils (%) (Auto) 1 % (0-3) Basophils (%) (Auto) 1 % (0-3) Neutrophils # (Auto) 2.0 x10^3/uL (1.8-7.7) Lymphocytes # (Auto) 2.6 x10^3/uL (1.0-4.8) Monocytes # (Auto) 0.6 x10^3/uL (0.0-1.1) Eosinophils # (Auto) 0.0 x10^3/uL (0.0-0.7) Basophils # (Auto) 0.0 x10^3/uL (0.0-0.2) Sodium Level 147 mmol/L (136-145) H Potassium Level 3.2 mmol/L (3.5-5.1) L Chloride Level 110 mmol/L (98-107) H Carbon Dioxide Level 26 mmol/L (21-32) Anion Gap 11 (6-14) Blood Urea Nitrogen 10 mg/dL (7-20) Creatinine 0.5 mg/dL (0.6-1.0) L Estimated GFR (Cockcroft-Gault) 145.5 BUN/Creatinine Ratio 20 (6-20) Glucose Level 92 mg/dL (70-99) Calcium Level 8.6 mg/dL (8.5-10.1) Magnesium Level 1.6 mg/dL (1.8-2.4) L Total Bilirubin 0.3 mg/dL (0.2-1.0) Aspartate Amino Transferase (AST) 12 U/L (15-37) L Alanine Aminotransferase (ALT) 12 U/L (14-59) L Alkaline Phosphatase 58 U/L (46-116) Troponin I Quantitative 0.039 ng/mL (0.000-0.055) LZ-Ulz-[id number]-Type Natriuretic Peptide 277 pg/mL (0-449) Total Protein 6.4 g/dL (6.4-8.2) Albumin 3.1 g/dL (3.4-5.0) L Albumin/Globulin Ratio 0.9 (1.0-1.7) L Lipase 24 U/L (73-393) L Laboratory Tests 07/13/19 20:00 Laboratory Tests 07/13/19 21:20 EKG EKG [] Interpretation Time: EKG demonstrates normal sinus rhythm with rate of 72. Radiology/Procedures Radiology/Procedures [] Course & Med Decision Making Course & Med Decision Making Pertinent Labs and Imaging studies reviewed. (See chart for details) [] Dragon Disclaimer Dragon Disclaimer This electronic medical record was generated, in whole or in part, using a voice recognition dictation system. Departure Departure Impression: Primary Impression: Chest pain Additional Impression: Chronic pain Disposition: 09 ADMITTED INPATIENT Admitting Physician: CARLINE (Dr. Neville) Condition: IMPROVED Referrals: CONRADO KAHN (PCP) Problem Qualifiers Primary Impression: Chest pain Chest pain type: unspecified Qualified Codes: R07.9 - Chest pain, unspecified Additional Impression: Chronic pain Chronic pain type: other chronic pain Qualified Codes: G89.29 - Other chronic pain OXANA RAYGOZA Jr. DO Jul 13, 2019 21:08
[2019-07-13 21:46] LABS: CALCIUM 8.6 mg/dL (8.5-10.1); CREATININE 0.5 mg/dL (0.6-1.0); GFR 145.5; POTASSIUM 3.2 mmol/L (3.5-5.1)
[2019-07-13 21:51] LABS: ALBUMIN 3.1 g/dL (3.4-5.0); ALBUMIN/GLOBULIN RATIO 0.9 (1.0-1.7); MAGNESIUM 1.6 mg/dL (1.8-2.4); TOTAL BILIRUBIN 0.3 mg/dL (0.2-1.0); TOTAL PROTEIN 6.4 g/dL (6.4-8.2)
[2019-07-13] MEDS ORDERED: HEPARIN for IV BOLUS 10,000 UNIT/10 ML VIAL. IV PRN (22:15)
[2019-07-13] MEDS ORDERED: ANTI-COAG MONITOR BY PHARMACY. MC PRN (22:15)
[2019-07-13] MEDS: HEPARIN 25,000UTS/500ML PREMIX 500 ML IV PRN (22:27)
[2019-07-13] MEDS ORDERED: HEPARIN for IV BOLUS 10,000 UNIT/10 ML VIAL. IV ONE (22:30)
[2019-07-13 23:20] VITALS: BP 151/71
--- NOTE | 2019-07-13 23:20 | NUR ---
Patient admitted to room 200 from ED. Heparin drip running upon arrival at 16.3 MLS/HR as per report from Svitlana ESPANA. Per Svitlana UFH ordered at 0430 per protocol. Patient alert and oriented x 4. Patient oriented to room, bed, call light, phone and Plan of care. Patient states she has 2-3 dollars in her purse and no other valuables other than cell phone/no card feeder. Patient declined lock up of valuables with security. See admission assessment/documentation. Call light in reach, will monitor.
[2019-07-14] MEDS: MORPHINE SULFATE 4 MG/ML VIAL. IV PRN ×3 (01:51→12:32)
[2019-07-14 03:20] VITALS: BP 120/74
--- NOTE | 2019-07-14 05:14 | NUR ---
Lab called as UFH and troponin results not on chart. tool rental technician stated "They are out to do draws."
[2019-07-14 05:40] LABS: HEMATOCRIT 31.4 % (36.0-47.0); HEMOGLOBIN 10.3 g/dL (12.0-15.5); RED BLOOD COUNT 3.68 x10^6/uL (3.50-5.40); RED CELL DISTRIBUTION WIDTH 14.8 % (11.5-14.5)
--- NOTE | 2019-07-14 06:07 | NUR ---
UFH result back 0.34. No change, no bolus, UFH in 6 hours ordered.
--- NOTE | 2019-07-14 06:28 | NUR ---
Reviewed allergies with Patient, Patient states "unknown pain medication tablet." Unable to find allergy on [facility] external history. Will pass on for day RN to ask family and if they know. If family not sure will have them try to call [facility].
--- NOTE | 2019-07-14 06:40 | NUR ---
Consult called to Dr. Gutiérrez's service. Spoke with Lilo at service([phone]). Lilo stated she would notify Dr. Gutiérrez.
[2019-07-14 07:00] VITALS: BP 141/86
[2019-07-14] MEDS ORDERED: TRIA1TAB2 PO (10:42)
[2019-07-14] MEDS ORDERED: BUPR200T PO (10:42)
[2019-07-14] MEDS ORDERED: DULO30CA44 PO (10:42)
[2019-07-14] MEDS ORDERED: HYDR-2769 PO ×2 (10:42→10:53)
[2019-07-14] MEDS ORDERED: CLON0.1T PO (10:42)
[2019-07-14 11:00] VITALS: BP 146/84
[2019-07-14] MEDS: ONDANSETRON PF 4 MG/2 ML VIAL. IV PRN ×2 (11:02→20:05)
--- NOTE | 2019-07-14 12:26 | PDOC2 ---
CONSULT Date of Consult Date of Consult DATE: 07/14/19 TIME: 12:19 Reason for Consult Reason for Consult: Chest pain Referring Physician Referring Physician: Dr. Neville Identification/Chief Complaint Chief Complaint Chest pain Source Source: Chart review, Patient History of Present Illness Reason for Visit: The patient is a 73-year-old female who was admitted through the emergency room for episodes of chest pain. Patient states the pain has occurred over the last 24-48 hours. It has decreased overnight. She additionally has a history of chronic pain and has been tapered off her pain medications several weeks ago. Troponins have been minimally elevated with a peak of 0.049. Potassium is 3.2. She has a history of neurofibromatosis as well as hypertension. She is resting reasonably comfortably in bed at this time with minimal distress. Past Medical History Cardiovascular: HTN CENTRAL NERVOUS SYSTEM: Other Dermatology: Other (neurofibromatosis) Past Surgical History Past Surgical History: Tubal Ligation, Hysterectomy, Other (removal of a stomach tumor) Family History Family History: Hypertension Social History No ALCOHOL: none Current Problem List Problem List Problems Medical Problems: (1) Chest pain Status: Acute (2) Chronic pain Status: Acute Current Medications Current Medications Current Medications Aspirin (Children'S Aspirin) 324 mg 1X ONCE PO Last administered on 07/13/19at 20:05; Start 07/13/19 at 20:00; Stop 07/13/19 at 20:01; Status DC Morphine Sulfate (Morphine Sulfate) 2 mg PRN Q15MIN PRN IV/SQ PAIN GREATER THAN 3/10 Last administered on 07/13/19at 21:54; Start 07/13/19 at 19:15; Stop 07/14/19 at 19:14 Ondansetron HCl (Zofran) 4 mg 1X ONCE IV Last administered on 07/13/19at 20:05; Start 07/13/19 at 20:00; Stop 07/13/19 at 20:01; Status DC Heparin Sodium (Porcine) (Heparin Sodium) 4,000 unit 1X ONCE IV Last administered on 07/13/19at 22:21; Start 07/13/19 at 22:30; Stop 07/13/19 at 22:31; Status DC Heparin Sodium/ Dextrose 500 ml @ 0 mls/hr CONT PRN PRN IV ANTICOAGULANT Last administered on 07/13/19at 22:27; Start 07/13/19 at 22:15 Heparin Sodium (Porcine) (Heparin Sodium) 1,700 unit PRN Q6HRS PRN IV FOR UFH LEVEL LESS THAN 0.2; Start 07/13/19 at 22:15 Ondansetron HCl (Zofran) 4 mg PRN Q8HRS PRN IV NAUSEA/VOMITING 1ST CHOICE Last administered on 07/14/19at 11:02; Start 07/13/19 at 22:15; Stop 07/14/19 at 22:14 Morphine Sulfate (Morphine Sulfate) 4 mg PRN Q2HR PRN IV SEVERE PAIN 7-10 Last administered on 07/14/19at 07:47; Start 07/13/19 at 22:15; Stop 07/14/19 at 22:14 Info (Anti-Coagulation Monitoring By Pharmacy) 1 each PRN DAILY PRN MC SEE COMMENTS; Start 07/13/19 at 22:15 Clonidine HCl (Catapres) 0.1 mg BID PO ; Start 07/14/19 at 21:00 Duloxetine HCl (Cymbalta) 30 mg DAILY PO ; Start 07/14/19 at 12:30 Triamterene/HCTZ (Maxzide 37.5/ 25mg) 1 tab DAILY PO ; Start 07/15/19 at 09:00 Bupropion HCl (Wellbutrin Xl) 150 mg DAILY PO ; Start 07/14/19 at 12:30 Active Scripts Active Reported Hydrocodone-Apap 10-325 (Hydrocodone Bit/Acetaminophen) 1 Tab Tablet 1 Tab PO PRN TID PRN Maxzide 37.5 Mg-25 Mg Tablet (Triamterene/Hydrochlorothiazid) 1 Each Tablet 1 Tab PO DAILY Clonidine Hcl 0.1 Mg Tablet 0.1 Mg PO BID Bupropion Hcl Sr (Bupropion Hcl) 200 Mg Tablet.er 150 Mg PO DAILY Duloxetine Hcl 30 Mg Capsule.dr 30 Mg PO DAILY Allergies Allergies: Coded Allergies: No Known Drug Allergies (Unverified , 07/14/19) ROS General: YES: Fatigue Cardiovascular: yes Chest Pain Musculoskeletal: Yes Other (hand pain) Physical Exam General: mild distress HEENT: Atraumatic Lungs: Clear to auscultation Heart: Regular rate Abdomen: Normal bowel sounds Vitals VITALS Vital Signs Date Time Temp Pulse Resp B/P (MAP) Pulse Ox O2 Delivery O2 Flow Rate FiO2 07/14/19 11:00 98.8 65 20 146/84 (104) 98 Room Air 98.8 Labs Labs Laboratory Tests Test 07/13/19 20:00 07/13/19 21:20 07/14/19 01:15 07/14/19 04:30 White Blood Count 5.2 x10^3/uL (4.0-11.0) 5.0 x10^3/uL (4.0-11.0) Red Blood Count 3.91 x10^6/uL (3.50-5.40) 3.68 x10^6/uL (3.50-5.40) Hemoglobin 10.7 g/dL (12.0-15.5) 10.3 g/dL (12.0-15.5) Hematocrit 33.2 % (36.0-47.0) 31.4 % (36.0-47.0) Mean Corpuscular Volume 85 fL (79-100) 85 fL (79-100) Mean Corpuscular Hemoglobin 27 pg (25-35) 28 pg (25-35) Mean Corpuscular Hemoglobin Concent 32 g/dL (31-37) 33 g/dL (31-37) Red Cell Distribution Width 15.0 % (11.5-14.5) 14.8 % (11.5-14.5) Platelet Count 226 x10^3/uL (140-400) 206 x10^3/uL (140-400) Neutrophils (%) (Auto) 38 % (31-73) Lymphocytes (%) (Auto) 50 % (24-48) Monocytes (%) (Auto) 11 % (0-9) Eosinophils (%) (Auto) 1 % (0-3) Basophils (%) (Auto) 1 % (0-3) Neutrophils # (Auto) 2.0 x10^3/uL (1.8-7.7) Lymphocytes # (Auto) 2.6 x10^3/uL (1.0-4.8) Monocytes # (Auto) 0.6 x10^3/uL (0.0-1.1) Eosinophils # (Auto) 0.0 x10^3/uL (0.0-0.7) Basophils # (Auto) 0.0 x10^3/uL (0.0-0.2) Sodium Level 147 mmol/L (136-145) Potassium Level 3.2 mmol/L (3.5-5.1) Chloride Level 110 mmol/L (98-107) Carbon Dioxide Level 26 mmol/L (21-32) Anion Gap 11 (6-14) Blood Urea Nitrogen 10 mg/dL (7-20) Creatinine 0.5 mg/dL (0.6-1.0) Estimated GFR (Cockcroft-Gault) 145.5 BUN/Creatinine Ratio 20 (6-20) Glucose Level 92 mg/dL (70-99) Calcium Level 8.6 mg/dL (8.5-10.1) Magnesium Level 1.6 mg/dL (1.8-2.4) Total Bilirubin 0.3 mg/dL (0.2-1.0) Aspartate Amino Transf (AST/SGOT) 12 U/L (15-37) Alanine Aminotransferase (ALT/SGPT) 12 U/L (14-59) Alkaline Phosphatase 58 U/L (46-116) Troponin I Quantitative 0.039 ng/mL (0.000-0.055) 0.040 ng/mL (0.000-0.055) 0.049 ng/mL (0.000-0.055) SH-Uwc-Q-Type Natriuretic Peptide 277 pg/mL (0-449) Total Protein 6.4 g/dL (6.4-8.2) Albumin 3.1 g/dL (3.4-5.0) Albumin/Globulin Ratio 0.9 (1.0-1.7) Lipase 24 U/L (73-393) Heparin Anti-Xa Act, Unfractionated 0.34 IU/mL (0.30-0.70) Laboratory Tests Test 07/13/19 20:00 07/13/19 21:20 07/14/19 01:15 07/14/19 04:30 White Blood Count 5.2 x10^3/uL (4.0-11.0) 5.0 x10^3/uL (4.0-11.0) Red Blood Count 3.91 x10^6/uL (3.50-5.40) 3.68 x10^6/uL (3.50-5.40) Hemoglobin 10.7 g/dL (12.0-15.5) 10.3 g/dL (12.0-15.5) Hematocrit 33.2 % (36.0-47.0) 31.4 % (36.0-47.0) Mean Corpuscular Volume 85 fL (79-100) 85 fL (79-100) Mean Corpuscular Hemoglobin 27 pg (25-35) 28 pg (25-35) Mean Corpuscular Hemoglobin Concent 32 g/dL (31-37) 33 g/dL (31-37) Red Cell Distribution Width 15.0 % (11.5-14.5) 14.8 % (11.5-14.5) Platelet Count 226 x10^3/uL (140-400) 206 x10^3/uL (140-400) Neutrophils (%) (Auto) 38 % (31-73) Lymphocytes (%) (Auto) 50 % (24-48) Monocytes (%) (Auto) 11 % (0-9) Eosinophils (%) (Auto) 1 % (0-3) Basophils (%) (Auto) 1 % (0-3) Neutrophils # (Auto) 2.0 x10^3/uL (1.8-7.7) Lymphocytes # (Auto) 2.6 x10^3/uL (1.0-4.8) Monocytes # (Auto) 0.6 x10^3/uL (0.0-1.1) Eosinophils # (Auto) 0.0 x10^3/uL (0.0-0.7) Basophils # (Auto) 0.0 x10^3/uL (0.0-0.2) Sodium Level 147 mmol/L (136-145) Potassium Level 3.2 mmol/L (3.5-5.1) Chloride Level 110 mmol/L (98-107) Carbon Dioxide Level 26 mmol/L (21-32) Anion Gap 11 (6-14) Blood Urea Nitrogen 10 mg/dL (7-20) Creatinine 0.5 mg/dL (0.6-1.0) Estimated GFR (Cockcroft-Gault) 145.5 BUN/Creatinine Ratio 20 (6-20) Glucose Level 92 mg/dL (70-99) Calcium Level 8.6 mg/dL (8.5-10.1) Magnesium Level 1.6 mg/dL (1.8-2.4) Total Bilirubin 0.3 mg/dL (0.2-1.0) Aspartate Amino Transf (AST/SGOT) 12 U/L (15-37) Alanine Aminotransferase (ALT/SGPT) 12 U/L (14-59) Alkaline Phosphatase 58 U/L (46-116) Troponin I Quantitative 0.039 ng/mL (0.000-0.055) 0.040 ng/mL (0.000-0.055) 0.049 ng/mL (0.000-0.055) SU-Dnk-V-Type Natriuretic Peptide 277 pg/mL (0-449) Total Protein 6.4 g/dL (6.4-8.2) Albumin 3.1 g/dL (3.4-5.0) Albumin/Globulin Ratio 0.9 (1.0-1.7) Lipase 24 U/L (73-393) Heparin Anti-Xa Act, Unfractionated 0.34 IU/mL (0.30-0.70) Images Images Checks x-ray shows no acute changes. It does show multiple soft tissue nodules. Assessment/Plan Assessment/Plan 1. Chest pain. Pain has improved overnight. Minimal elevation of troponin with a peak of 0.049. No history of coronary disease. No acute ischemic changes. We'll continue to monitor and trend troponin. In this setting would check a Lexiscan nuclear stress test tomorrow to exclude underlying coronary artery disease. 2. Neurofibromatosis. Continue present treatments and monitoring. 3. Borderline hypertension. We'll continue present treatments and monitor. Thank you for allowing us to participate in the care of your patient. LILI GORMAN MD Jul 14, 2019 12:25
[2019-07-14] MEDS ORDERED: buPROPion XL 150 MG TAB.ER.24H. PO SCH (12:30)
[2019-07-14] MEDS ORDERED: DULoxetine HCL 30 MG CAPSULE.DR PO SCH (12:30)
--- NOTE | 2019-07-14 14:32 | EKG ---
[facility] [address] [place] [address] Test Date: 2019-07-13 Test Time: 19:25:12 Pat Name: ALBERT HOLCOMB Department: Room: Gender: F First Leveler: : 1945 Requested By: OXANA RAYGOZA Order Number: [id number] Reading MD: Measurements Intervals [place] Rate: 72 P: 0 TN: 160 QRS: -24 QRSD: 94 T: 13 QT: 390 QTc: 429 Interpretive Statements SINUS RHYTHM LEFTWARD AXIS OTHERWISE NORMAL ECG RI6.01 No previous ECG available for comparison
--- NOTE | 2019-07-14 14:33 | HP ---
ADMIT DATE: CHIEF COMPLAINT: Chest pain. HISTORY OF PRESENT ILLNESS: The patient is a pleasant 73-year-old female who presents with chest pain. She rates it 02/11. She has associated weakness, has been occurring for several days, but got worse today. It is also radiating to the left shoulder. Her troponin was slightly high at 0.05. I discussed the case with ER physician. We are going to admit the patient and consult Cardiology. PAST MEDICAL HISTORY: Neurofibromatosis, arthritis, hypertension and tubal ligation. ALLERGIES: None. FAMILY HISTORY: Diabetes and neurofibromatosis. She does not drink, smoke or take drugs. MEDICATIONS: Reviewed, please refer to the MRAD. REVIEW OF SYSTEMS: GENERAL: No history of weight change, weakness or fevers. SKIN: No bruising, hair changes or rashes. EYES: No blurred, double or loss of vision. NOSE AND THROAT: No history of nosebleeds, hoarseness or sore throat. HEART: No history of palpitations or shortness of breath on exertion. She complains of chest pain. LUNGS: Denies cough, hemoptysis, wheezing or shortness of breath. GASTROINTESTINAL: Denies changes in appetite, nausea, vomiting, diarrhea or constipation. GENITOURINARY: No history of frequency, urgency, hesitancy or nocturia. NEUROLOGIC: Denies history of numbness, tingling, tremor or weakness. PSYCHIATRIC: No history of panic, anxiety or depression. ENDOCRINE: No history of heat or cold intolerance, polyuria or polydipsia. EXTREMITIES: Denies muscle weakness, joint pain, pain on walking or stiffness. PHYSICAL EXAMINATION: VITALS: Within normal limits and are stable. GENERAL: No apparent distress. Alert and oriented. HEENT: Head is normocephalic, atraumatic, pupils were equally round and reactive to light and accommodation. NECK: Supple, no JVD, no thyromegaly was noted. LUNGS: Clear to auscultation in all lung wiley without rhonchi or wheezing. HEART: RRR, S1, S2 present. Peripheral pulses intact, no obvious murmurs were noted. ABDOMEN: Soft, nontender. Positive bowel sounds no organomegaly, normal bowel sounds. EXTREMITIES: Without any cyanosis, clubbing, or edema. Pedal pulses intact, Homans sign is negative. NEUROLOGIC: Normal speech, normal tone. A and O x 3, moves all extremities, no obvious focal deficits. PSYCHIATRIC: Normal affect, normal mood. Stable. SKIN: She has multiple, multiple neurofibromas. VASCULAR: Good capillary refill, neurovascular bundle appears to be intact. LABORATORY DATA: Troponin is 0.05. Chest x-ray shows multiple nodules consistent with neurofibromatosis. ASSESSMENT AND PLAN: Chest pain. The patient has been placed on a heparin drip. We have consulted Cardiology. Serial cardiac enzymes, serial EKGs, echocardiogram. DVT prophylaxis. Full code. LILIA SHIN DO DR: KARTHIKEYAN/paul JOB#: [id number] / [id number]
[2019-07-14 15:00] VITALS: BP 149/88
[2019-07-14] MEDS: oxyCODONE/APAP 5/325 1 TAB TABLET PO PRN ×2 (18:25→22:18)
[2019-07-14 20:04] VITALS: BP 156/90
[2019-07-14] MEDS: cloNIDine HCL 0.1 MG TABLET PO SCH (20:13)
[2019-07-14 22:49] VITALS: BP 137/81
[2019-07-15 02:59] VITALS: BP 138/80
[2019-07-15] MEDS: oxyCODONE/APAP 5/325 1 TAB TABLET PO PRN ×2 (03:03→14:09)
[2019-07-15] MEDS: HEPARIN 25,000UTS/500ML PREMIX 500 ML IV PRN (03:24)
[2019-07-15] MEDS: MORPHINE SULFATE 2 MG/ML VIAL. IV PRN ×2 (06:32→11:05)
[2019-07-15 07:00] VITALS: BP 120/72
[2019-07-15 07:51] LABS: BASO % 1 % (0-3); EOS # 0.1 x10^3/uL (0.0-0.7); EOS % 1 % (0-3); HEMATOCRIT 31.8 % (36.0-47.0); HEMOGLOBIN 10.5 g/dL (12.0-15.5); LYMPH # 3.3 x10^3/uL (1.0-4.8); LYMPH % 59 % (24-48); MEAN CORPUSCULAR HEMOGLOBIN 28 pg (25-35); MEAN CORPUSCULAR HGB CONC 33 g/dL (31-37); MEAN CORPUSCULAR VOLUME 85 fL (79-100); MONO # 0.5 x10^3/uL (0.0-1.1); MONO % 9 % (0-9); NEUT # 1.7 x10^3/uL (1.8-7.7); NEUT % 30 % (31-73); PLATELET COUNT 222 x10^3/uL (140-400); RED BLOOD COUNT 3.76 x10^6/uL (3.50-5.40); RED CELL DISTRIBUTION WIDTH 14.5 % (11.5-14.5); WHITE BLOOD COUNT 5.6 x10^3/uL (4.0-11.0)
[2019-07-15 08:22] LABS: ALBUMIN 2.9 g/dL (3.4-5.0); ALBUMIN/GLOBULIN RATIO 0.9 (1.0-1.7); CALCIUM 8.4 mg/dL (8.5-10.1); CREATININE 0.7 mg/dL (0.6-1.0); GFR 98.7; POTASSIUM 3.3 mmol/L (3.5-5.1); TOTAL BILIRUBIN 0.3 mg/dL (0.2-1.0); TOTAL PROTEIN 6.1 g/dL (6.4-8.2)
[2019-07-15 08:27] LABS: CHOLESTEROL/HDL RATIO 2.9
[2019-07-15] MEDS ORDERED: REGADENOSON 0.4 MG/5 ML DISP.SYRIN. IV ONE (08:30)
[2019-07-15] MEDS ORDERED: TRIAMTERENE/HCTZ 37.5/25MG TABLET. PO SCH (09:00)
--- NOTE | 2019-07-15 10:45 | PDOC ---
[employer] PROGRESS NOTE Chief Complaint Chief Complaint Chest pain Neurofibromatosis Arthritis Hypertension Tubal ligation. History of Present Illness History of Present Illness Pt seen and examined Getting echo/MPI now ALICIA RN Vitals/I&O Vitals/I&O: Vital Signs Date Time Temp Pulse Resp B/P (MAP) Pulse Ox O2 Delivery O2 Flow Rate FiO2 07/15/19 08:00 Room Air 07/15/19 07:00 98.4 66 18 120/72 (88) 100 98.4 I & O 07/14/19 07/14/19 07/15/19 15:00 23:00 07:00 Intake Total 240 ml 240 ml 800 ml Output Total 900 ml Balance -660 ml 240 ml 800 ml Physical Exam Physical Exam: Skin: Numerous neurofibromas General: Alert, Oriented X3, mild distress Heart: Regular rate, Normal S1 Lungs: Clear Abdomen: Normal bowel sounds, No tenderness Extremities: No clubbing, No cyanosis Skin: No rashes Labs Labs: Laboratory Tests Test 07/14/19 12:12 07/14/19 17:55 07/15/19 06:10 Heparin Anti-Xa Act, Unfractionated 0.28 IU/mL (0.30-0.70) 0.42 IU/mL (0.30-0.70) 0.46 IU/mL (0.30-0.70) White Blood Count 5.6 x10^3/uL (4.0-11.0) Red Blood Count 3.76 x10^6/uL (3.50-5.40) Hemoglobin 10.5 g/dL (12.0-15.5) Hematocrit 31.8 % (36.0-47.0) Mean Corpuscular Volume 85 fL (79-100) Mean Corpuscular Hemoglobin 28 pg (25-35) Mean Corpuscular Hemoglobin Concent 33 g/dL (31-37) Red Cell Distribution Width 14.5 % (11.5-14.5) Platelet Count 222 x10^3/uL (140-400) Neutrophils (%) (Auto) 30 % (31-73) Lymphocytes (%) (Auto) 59 % (24-48) Monocytes (%) (Auto) 9 % (0-9) Eosinophils (%) (Auto) 1 % (0-3) Basophils (%) (Auto) 1 % (0-3) Neutrophils # (Auto) 1.7 x10^3/uL (1.8-7.7) Lymphocytes # (Auto) 3.3 x10^3/uL (1.0-4.8) Monocytes # (Auto) 0.5 x10^3/uL (0.0-1.1) Eosinophils # (Auto) 0.1 x10^3/uL (0.0-0.7) Basophils # (Auto) 0.0 x10^3/uL (0.0-0.2) Sodium Level 143 mmol/L (136-145) Potassium Level 3.3 mmol/L (3.5-5.1) Chloride Level 107 mmol/L (98-107) Carbon Dioxide Level 27 mmol/L (21-32) Anion Gap 9 (6-14) Blood Urea Nitrogen 10 mg/dL (7-20) Creatinine 0.7 mg/dL (0.6-1.0) Estimated GFR (Cockcroft-Gault) 98.7 BUN/Creatinine Ratio 14 (6-20) Glucose Level 78 mg/dL (70-99) Calcium Level 8.4 mg/dL (8.5-10.1) Total Bilirubin 0.3 mg/dL (0.2-1.0) Aspartate Amino Transf (AST/SGOT) 9 U/L (15-37) Alanine Aminotransferase (ALT/SGPT) 11 U/L (14-59) Alkaline Phosphatase 60 U/L (46-116) Total Protein 6.1 g/dL (6.4-8.2) Albumin 2.9 g/dL (3.4-5.0) Albumin/Globulin Ratio 0.9 (1.0-1.7) Triglycerides Level 46 mg/dL (0-150) Cholesterol Level 140 mg/dL (0-200) LDL Cholesterol, Calculated 83 mg/dL (0-100) VLDL Cholesterol, Calculated 9 mg/dL (0-40) Non-HDL Cholesterol Calculated 92 mg/dL (0-129) HDL Cholesterol 48 mg/dL (40-60) Cholesterol/HDL Ratio 2.9 Review of Systems Review of Systems: no cp co arthritis Assessment and Plan Assessmemt and Plan Problems Medical Problems: (1) Chest pain Status: Acute (2) Chronic pain Status: Acute Assessment Chest pain Neurofibromatosis Arthritis Hypertension Tubal ligation. Plan Heparin qtt for now Await MPI Cardiac monitoring Labs Home meds MSO4 DVT proph Full code DC when ok with cards PTOT Comment Review of Relevant I have reviewed the following items jules (where applicable) has been applied. Medications: Current Medications Medications (Trade) Dose Ordered Sig/Marlene Route PRN Reason Start Time Stop Time Status Last Admin Dose Admin Clonidine HCl (Catapres) 0.1 mg BID PO 07/14/19 21:00 07/14/19 20:13 Oxycodone/ Acetaminophen (Percocet 5/325) 1 tab PRN Q4HRS PRN PO PAIN 07/14/19 13:15 07/15/19 03:03 Morphine Sulfate (Morphine Sulfate) 2 mg PRN Q2HR PRN IV SEVERE PAIN 7-07/15/19 06:30 07/15/19 06:32 Regadenoson (Lexiscan) 0.4 mg 1X ONCE IV 07/15/19 08:30 07/15/19 08:31 DC 07/15/19 09:34 LILIA SHIN III DO Jul 15, 2019 10:45
[2019-07-15] MEDS: cloNIDine HCL 0.1 MG TABLET PO SCH (11:04)
--- NOTE | 2019-07-15 11:08 | CARD ---
MR#: [id number] Date of Study: 07/15/2019 Ordering Physician: LILI GORMAN, Referring Physician: LILI GORMAN, Daniel: Marilou Archer APPROVED REPORT EXAM: Two-dimensional and M-mode echocardiogram with Doppler and color Doppler. Other Information Quality : AverageHR: 68bpm INDICATION Chest Pain 2D DIMENSIONS RVDd3.1 (2.9-3.5cm)Left Atrium(2D)2.9 (1.6-4.0cm) IVSd1.3 (0.7-1.1cm)Aortic Root(2D)2.1 (2.0-3.7cm) LVDd4.6 (3.9-5.9cm)LVOT Diameter2.0 (1.8-2.4cm) PWd0.7 (0.7-1.1cm)LVDs2.9 (2.5-4.0cm) FS (%) 35.6 %SV62.6 ml LVEF(%)65.2 (>50%) Aortic Valve AoV Peak Pratik.155.2cm/sAoV VTI31.9cm AO Peak GR.9.6mmHgLVOT Peak Pratik.90.8cm/s AO Mean GR.4mmHgAVA (VMAX)1.87cm2 AI P 1/2 [id number] Mitral Valve MV E Edznmrzp74.9cm/sMV E Peak Gr.7mmHg MV DECEL [id number] A Aoqbmyxq975.5cm/s MV E Mean Gr.2mmHgE/A Ratio0.5 Pulmonary Valve PV Peak Ahtmhajr01.1cm/s Tricuspid Valve RAP ELIKQQYP2afPg Pulmonary Vein S1 Xlaxptwh51.8cm/sD2 Ybwbymti02.0cm/s LEFT VENTRICLE The left ventricle is normal size. There is borderline to mild septal left ventricular hypertrophy. T he left ventricular systolic function is normal. The Ejection Fraction is 60-65%. There is normal LV segmental wall motion. Transmitral Doppler flow pattern is Grade I-abnormal relaxation pattern. RIGHT VENTRICLE The right ventricle is normal size. There is normal right ventricular wall thickness. The right ventr icular systolic function is normal. ATRIA The left atrium size is normal. The right atrium size is normal. The interatrial septum is intact wit h no evidence for an atrial septal defect or patent foramen ovale as noted on 2-D or Doppler imaging. AORTIC VALVE The aortic valve is thickened but opens well. Doppler and Color Flow revealed mild to moderate aortic regurgitation. There is no significant aortic valvular stenosis. MITRAL VALVE The mitral valve is thickened but opens well. Mitral annular calcification is mild. There is no evide nce of mitral valve prolapse. There is no mitral valve stenosis. Doppler and Color-flow revealed mild mitral regurgitation. TRICUSPID VALVE The tricuspid valve is normal in structure and function. Doppler and Color Flow revealed trace tricus pid regurgitation. There is no tricuspid valve stenosis. PULMONIC VALVE The pulmonic valve is not well visualized. Doppler and Color Flow revealed mild pulmonic valvular reg urgitation. GREAT VESSELS The aortic root is normal in size. The ascending aorta is normal in size. The IVC is normal in size a nd collapses >50% with inspiration. PERICARDIAL EFFUSION There is no pleural effusion. There is no evidence of significant pericardial effusion. Critical Notification Critical Value: No <Conclusion> The left ventricular systolic function is normal. The Ejection Fraction is 60-65%. There is normal LV segmental wall motion. Transmitral Doppler flow pattern is Grade I-abnormal relaxation pattern. Mild to moderate aortic regurgitation. Mild mitral regurgitation. Trace tricuspid regurgitation. There is no evidence of significant pericardial effusion. Signed by : Xu Beth, Electronically Approved : 07/15/2019 11:08:20
--- NOTE | 2019-07-15 12:14 | RAD ---
MR#: [id number] Date of Study: 07/15/2019 Ordering Physician: LILI GORMAN, Referring Physician: MATILDE CASTILLO Tech: FEDERICO De La Garza ARRT (R) (N) APPROVED REPORT Test Type: Pharmacological Stress Nurse/Tech: Julieta Alfonso RN Test Indications: Chest Pain Cardiac History: Hypertension Medications: See Electronic Medical Record Medical History: See Electronic Medical Record Resting ECG: SR with PACs Resting Heart Rate: 66 bpm Resting Blood Pressure: 143/90mmHg Pretest Chest Pain: No chest pain Nurse/Tech Notes S1,S2 and lungs clear to auscultation. Consent: The procedure was explained to the patient in lay terms. Informed consent was witnessed. Pavel eout was entered into [employer]. History and Stress Test performed by FEDERICO De La Garza ARRT (R) (N) Pharm. Details Pharmacologic stress testing was performed using 0.4mg per 5ml of regadenoson given intravenously ove r 7-10 seconds. Stress Symptoms No chest pain or symptoms. POST EXERCISE Reason for Termination: Infusion complete Target HR: No Max HR: 89 bpm 72% of Maximum Predicted HR: 123 bpm Max Blood Pressure: 143/72mmHg Blood Pressure response to exercise: Normal blood pressure response during stress. Heart Rate response to exercise: WNL Chest Pain: No. Arrhythmia: Yes. PACs ST Change: No. INTERPRETATION Stress EKG Conclusion: Baseline EKG showed sinus rhythm with PAC's. No ischemic changes at peak stre ss. PAC's without any significant arrhythmias. Imaging Protocol IMAGE PROTOCOL: Rest Tc-99m/stress Tc-99m 1 day Rest: Stress: Viability: Radiopharm.Tc99m BvzrxoumxSe23k Sestamibi Idvg91tJm 33mCi Img Date 07/15/2019 07/15/2019 Inj-Img Ildm58xdt. 60min. Rest Admin Site:IV - Left HandAdministrator:FEDERICO De La Garza ARRT (R)(N) Stress Admin Site: IV - Left HandAdministrator: Russell Randolph, RT (R)(N) STRESS DATA End Diast. Vol.86.0mlLVEDV index BSA49.0ml End Syst. Vol.22.0mlLVESV index BSA13.0ml Myocardial Ootx285.0gEject. Ffpwdfjr65.0% Stress Scores Regional WT1.00Summed WT11.00 Regional WM0.00Summed WM0.00 Study quality was good. Left Ventricular size was Normal at Rest and Stress. Lung uptake was . Left Ventricular ejection fraction is 69%. The rest and stress images show normal perfusion, normal contraction and thickening. LV Perf. Quant 17 Seg. SSS0.00 17 Seg. SRS3.00 17 Seg. SDS0.00 Stress Defect Extent (% LAD)0.00Rest Defect Extent (% LAD)0.00Rev. Defect Extent (% LAD)0.00 Stress Defect Extent (% LCX) 0.00Rest Defect Extent (% LCX)20.00Rev. Defect Extent (% LCX)0.00 Stress Defect Extent (% RCA)0.00Rest Defect Extent (% RCA)1.10Rev. Defect Extent (% RCA)0.00 Stress Defect Extent (% LUCIAN)0.00Rest Defect Extent (% LUCIAN)3.70Rev. Defect Extent (% LUCIAN)0.00 Conclusion 1. Regadenoson cardioisotope stress test did not show any evidence of ischemia or infarct. 2. Normal left ventricular systolic function with ejection fraction calculated at 69%. 3. Low risk for cardiac events. Signed by : Xu Beth, Electronically Approved : 07/15/2019 12:13:48
[2019-07-15 12:20] VITALS: BP 130/68
[2019-07-15] MEDS ORDERED: POTASSIUM CHLORIDE 20 MEQ TABLET.ER. PO ONE (12:45)
--- NOTE | 2019-07-15 14:43 | NUR ---
SS following for discharge planning. SS reviewed pt chart. Pt is from home and is currently on room air. SS will continue to follow for discharge planning.
[2019-07-15 15:00] VITALS: BP 123/65
--- NOTE | 2019-07-15 16:04 | PDOC ---
PROGRESS NOTES Subjective Subjective Patient seen and examined She reports continued but improved chest pressure Objective Objective Vital Signs Date Time Temp Pulse Resp B/P (MAP) Pulse Ox O2 Delivery O2 Flow Rate FiO2 07/15/19 12:20 98.0 70 18 130/68 (88) 97 Room Air 98.0 Intake and Output 07/15/19 07:00 Intake Total 1280 ml Output Total 900 ml Balance 380 ml Intake Oral 780 ml IV Total 500 ml Output Urine Total 900 ml # Voids 7 Physical Exam Abdomen: Normal bowel sounds Heart: Regular rate General: mild distress Lungs: Clear to auscultation Assessment Assessment Problems Medical Problems: (1) Chest pain Status: Acute (2) Chronic pain Status: Acute 1. Chest pain. Pain has improved overnight. Minimal elevation of troponin with a peak of 0.049. No history of coronary disease. No acute ischemic changes. Nuclear stress testing shows no reversible ischemia or infarct. Echocardiogram shows normal LV systolic function with mild to moderate aortic insufficiency. We'll continue present medications and increase activity. The patient appears stable from a CV viewpoint. 2. Neurofibromatosis. Continue present treatments and monitoring. 3. Borderline hypertension. We'll continue present treatments and monitor. Comment Review of Relevant I have reviewed the following items jules (where applicable) has been applied. Labs Laboratory Tests Test 07/13/19 20:00 07/13/19 21:20 07/14/19 01:15 07/14/19 04:30 White Blood Count 5.2 x10^3/uL (4.0-11.0) 5.0 x10^3/uL (4.0-11.0) Red Blood Count 3.91 x10^6/uL (3.50-5.40) 3.68 x10^6/uL (3.50-5.40) Hemoglobin 10.7 g/dL (12.0-15.5) 10.3 g/dL (12.0-15.5) Hematocrit 33.2 % (36.0-47.0) 31.4 % (36.0-47.0) Mean Corpuscular Volume 85 fL (79-100) 85 fL (79-100) Mean Corpuscular Hemoglobin 27 pg (25-35) 28 pg (25-35) Mean Corpuscular Hemoglobin Concent 32 g/dL (31-37) 33 g/dL (31-37) Red Cell Distribution Width 15.0 % (11.5-14.5) 14.8 % (11.5-14.5) Platelet Count 226 x10^3/uL (140-400) 206 x10^3/uL (140-400) Neutrophils (%) (Auto) 38 % (31-73) Lymphocytes (%) (Auto) 50 % (24-48) Monocytes (%) (Auto) 11 % (0-9) Eosinophils (%) (Auto) 1 % (0-3) Basophils (%) (Auto) 1 % (0-3) Neutrophils # (Auto) 2.0 x10^3/uL (1.8-7.7) Lymphocytes # (Auto) 2.6 x10^3/uL (1.0-4.8) Monocytes # (Auto) 0.6 x10^3/uL (0.0-1.1) Eosinophils # (Auto) 0.0 x10^3/uL (0.0-0.7) Basophils # (Auto) 0.0 x10^3/uL (0.0-0.2) Sodium Level 147 mmol/L (136-145) Potassium Level 3.2 mmol/L (3.5-5.1) Chloride Level 110 mmol/L (98-107) Carbon Dioxide Level 26 mmol/L (21-32) Anion Gap 11 (6-14) Blood Urea Nitrogen 10 mg/dL (7-20) Creatinine 0.5 mg/dL (0.6-1.0) Estimated GFR (Cockcroft-Gault) 145.5 BUN/Creatinine Ratio 20 (6-20) Glucose Level 92 mg/dL (70-99) Calcium Level 8.6 mg/dL (8.5-10.1) Magnesium Level 1.6 mg/dL (1.8-2.4) Total Bilirubin 0.3 mg/dL (0.2-1.0) Aspartate Amino Transf (AST/SGOT) 12 U/L (15-37) Alanine Aminotransferase (ALT/SGPT) 12 U/L (14-59) Alkaline Phosphatase 58 U/L (46-116) Troponin I Quantitative 0.039 ng/mL (0.000-0.055) 0.040 ng/mL (0.000-0.055) 0.049 ng/mL (0.000-0.055) UV-Hzs-J-Type Natriuretic Peptide 277 pg/mL (0-449) Total Protein 6.4 g/dL (6.4-8.2) Albumin 3.1 g/dL (3.4-5.0) Albumin/Globulin Ratio 0.9 (1.0-1.7) Lipase 24 U/L (73-393) Heparin Anti-Xa Act, Unfractionated 0.34 IU/mL (0.30-0.70) Test 07/14/19 12:12 07/14/19 17:55 07/15/19 06:10 Heparin Anti-Xa Act, Unfractionated 0.28 IU/mL (0.30-0.70) 0.42 IU/mL (0.30-0.70) 0.46 IU/mL (0.30-0.70) White Blood Count 5.6 x10^3/uL (4.0-11.0) Red Blood Count 3.76 x10^6/uL (3.50-5.40) Hemoglobin 10.5 g/dL (12.0-15.5) Hematocrit 31.8 % (36.0-47.0) Mean Corpuscular Volume 85 fL (79-100) Mean Corpuscular Hemoglobin 28 pg (25-35) Mean Corpuscular Hemoglobin Concent 33 g/dL (31-37) Red Cell Distribution Width 14.5 % (11.5-14.5) Platelet Count 222 x10^3/uL (140-400) Neutrophils (%) (Auto) 30 % (31-73) Lymphocytes (%) (Auto) 59 % (24-48) Monocytes (%) (Auto) 9 % (0-9) Eosinophils (%) (Auto) 1 % (0-3) Basophils (%) (Auto) 1 % (0-3) Neutrophils # (Auto) 1.7 x10^3/uL (1.8-7.7) Lymphocytes # (Auto) 3.3 x10^3/uL (1.0-4.8) Monocytes # (Auto) 0.5 x10^3/uL (0.0-1.1) Eosinophils # (Auto) 0.1 x10^3/uL (0.0-0.7) Basophils # (Auto) 0.0 x10^3/uL (0.0-0.2) Sodium Level 143 mmol/L (136-145) Potassium Level 3.3 mmol/L (3.5-5.1) Chloride Level 107 mmol/L (98-107) Carbon Dioxide Level 27 mmol/L (21-32) Anion Gap 9 (6-14) Blood Urea Nitrogen 10 mg/dL (7-20) Creatinine 0.7 mg/dL (0.6-1.0) Estimated GFR (Cockcroft-Gault) 98.7 BUN/Creatinine Ratio 14 (6-20) Glucose Level 78 mg/dL (70-99) Calcium Level 8.4 mg/dL (8.5-10.1) Total Bilirubin 0.3 mg/dL (0.2-1.0) Aspartate Amino Transf (AST/SGOT) 9 U/L (15-37) Alanine Aminotransferase (ALT/SGPT) 11 U/L (14-59) Alkaline Phosphatase 60 U/L (46-116) Total Protein 6.1 g/dL (6.4-8.2) Albumin 2.9 g/dL (3.4-5.0) Albumin/Globulin Ratio 0.9 (1.0-1.7) Triglycerides Level 46 mg/dL (0-150) Cholesterol Level 140 mg/dL (0-200) LDL Cholesterol, Calculated 83 mg/dL (0-100) VLDL Cholesterol, Calculated 9 mg/dL (0-40) Non-HDL Cholesterol Calculated 92 mg/dL (0-129) HDL Cholesterol 48 mg/dL (40-60) Cholesterol/HDL Ratio 2.9 Laboratory Tests Test 07/14/19 17:55 07/15/19 06:10 Heparin Anti-Xa Act, Unfractionated 0.42 IU/mL (0.30-0.70) 0.46 IU/mL (0.30-0.70) White Blood Count 5.6 x10^3/uL (4.0-11.0) Red Blood Count 3.76 x10^6/uL (3.50-5.40) Hemoglobin 10.5 g/dL (12.0-15.5) Hematocrit 31.8 % (36.0-47.0) Mean Corpuscular Volume 85 fL (79-100) Mean Corpuscular Hemoglobin 28 pg (25-35) Mean Corpuscular Hemoglobin Concent 33 g/dL (31-37) Red Cell Distribution Width 14.5 % (11.5-14.5) Platelet Count 222 x10^3/uL (140-400) Neutrophils (%) (Auto) 30 % (31-73) Lymphocytes (%) (Auto) 59 % (24-48) Monocytes (%) (Auto) 9 % (0-9) Eosinophils (%) (Auto) 1 % (0-3) Basophils (%) (Auto) 1 % (0-3) Neutrophils # (Auto) 1.7 x10^3/uL (1.8-7.7) Lymphocytes # (Auto) 3.3 x10^3/uL (1.0-4.8) Monocytes # (Auto) 0.5 x10^3/uL (0.0-1.1) Eosinophils # (Auto) 0.1 x10^3/uL (0.0-0.7) Basophils # (Auto) 0.0 x10^3/uL (0.0-0.2) Sodium Level 143 mmol/L (136-145) Potassium Level 3.3 mmol/L (3.5-5.1) Chloride Level 107 mmol/L (98-107) Carbon Dioxide Level 27 mmol/L (21-32) Anion Gap 9 (6-14) Blood Urea Nitrogen 10 mg/dL (7-20) Creatinine 0.7 mg/dL (0.6-1.0) Estimated GFR (Cockcroft-Gault) 98.7 BUN/Creatinine Ratio 14 (6-20) Glucose Level 78 mg/dL (70-99) Calcium Level 8.4 mg/dL (8.5-10.1) Total Bilirubin 0.3 mg/dL (0.2-1.0) Aspartate Amino Transf (AST/SGOT) 9 U/L (15-37) Alanine Aminotransferase (ALT/SGPT) 11 U/L (14-59) Alkaline Phosphatase 60 U/L (46-116) Total Protein 6.1 g/dL (6.4-8.2) Albumin 2.9 g/dL (3.4-5.0) Albumin/Globulin Ratio 0.9 (1.0-1.7) Triglycerides Level 46 mg/dL (0-150) Cholesterol Level 140 mg/dL (0-200) LDL Cholesterol, Calculated 83 mg/dL (0-100) VLDL Cholesterol, Calculated 9 mg/dL (0-40) Non-HDL Cholesterol Calculated 92 mg/dL (0-129) HDL Cholesterol 48 mg/dL (40-60) Cholesterol/HDL Ratio 2.9 Medications Current Medications Aspirin (Children'S Aspirin) 324 mg 1X ONCE PO Last administered on 07/13/19at 20:05; Start 07/13/19 at 20:00; Stop 07/13/19 at 20:01; Status DC Morphine Sulfate (Morphine Sulfate) 2 mg PRN Q15MIN PRN IV/SQ PAIN GREATER THAN 3/10 Last administered on 07/13/19at 21:54; Start 07/13/19 at 19:15; Stop 07/14/19 at 19:14; Status DC Ondansetron HCl (Zofran) 4 mg 1X ONCE IV Last administered on 07/13/19at 20:05; Start 07/13/19 at 20:00; Stop 07/13/19 at 20:01; Status DC Heparin Sodium (Porcine) (Heparin Sodium) 4,000 unit 1X ONCE IV Last administered on 07/13/19at 22:21; Start 07/13/19 at 22:30; Stop 07/13/19 at 22:31; Status DC Heparin Sodium/ Dextrose 500 ml @ 0 mls/hr CONT PRN PRN IV ANTICOAGULANT Last administered on 07/15/19at 03:24; Start 07/13/19 at 22:15; Stop 07/15/19 at 12:33; Status DC Heparin Sodium (Porcine) (Heparin Sodium) 1,700 unit PRN Q6HRS PRN IV FOR UFH LEVEL LESS THAN 0.2; Start 07/13/19 at 22:15; Stop 07/15/19 at 12:33; Status DC Ondansetron HCl (Zofran) 4 mg PRN Q8HRS PRN IV NAUSEA/VOMITING 1ST CHOICE Last administered on 07/14/19at 20:05; Start 07/13/19 at 22:15; Stop 07/14/19 at 22:14; Status DC Morphine Sulfate (Morphine Sulfate) 4 mg PRN Q2HR PRN IV SEVERE PAIN 7-10 Last administered on 07/14/19at 12:32; Start 07/13/19 at 22:15; Stop 07/14/19 at 22:14; Status DC Info (Anti-Coagulation Monitoring By Pharmacy) 1 each PRN DAILY PRN MC SEE COMMENTS Last administered on 07/14/19at 13:03; Start 07/13/19 at 22:15 Clonidine HCl (Catapres) 0.1 mg BID PO Last administered on 07/15/19at 11:04; Start 07/14/19 at 21:00 Duloxetine HCl (Cymbalta) 30 mg DAILY PO ; Start 07/14/19 at 12:30; Status Cancel Triamterene/HCTZ (Maxzide 37.5/ 25mg) 1 tab DAILY PO ; Start 07/15/19 at 09:00 Bupropion HCl (Wellbutrin Xl) 150 mg DAILY PO ; Start 07/14/19 at 12:30; Status Cancel Oxycodone/ Acetaminophen (Percocet 5/325) 1 tab PRN Q4HRS PRN PO PAIN Last administered on 07/15/19at 14:09; Start 07/14/19 at 13:15 Morphine Sulfate (Morphine Sulfate) 2 mg PRN Q2HR PRN IV SEVERE PAIN 7-10 Last administered on 07/15/19at 11:05; Start 07/15/19 at 06:30 Regadenoson (Lexiscan) 0.4 mg 1X ONCE IV Last administered on 07/15/19at 09:34; Start 07/15/19 at 08:30; Stop 07/15/19 at 08:31; Status DC Potassium Chloride (Klor-Con) 40 meq 1X ONCE PO Last administered on 07/15/19at 12:53; Start 07/15/19 at 12:45; Stop 07/15/19 at 12:46; Status DC Active Scripts Active Reported Hydrocodone-Apap 10-325 (Hydrocodone Bit/Acetaminophen) 1 Tab Tablet 1 Tab PO PRN TID PRN Maxzide 37.5 Mg-25 Mg Tablet (Triamterene/Hydrochlorothiazid) 1 Each Tablet 1 Tab PO DAILY Clonidine Hcl 0.1 Mg Tablet 0.1 Mg PO BID Bupropion Hcl Sr (Bupropion Hcl) 200 Mg Tablet.er 150 Mg PO DAILY Duloxetine Hcl 30 Mg Capsule.dr 30 Mg PO DAILY Vitals/I & O Vital Sign - Last 24 Hours 11/10/19 11/10/19 11/10/19 11/10/19 19:00 19:30 20:04 20:13 Temp 98.2 98.2 Pulse 64 73 73 Resp 18 18 18 B/P (MAP) 156/90 (112) 156/90 Pulse Ox 97 97 O2 Delivery Room Air Room Air Room Air 07/14/19 07/14/19 07/14/19 07/14/19 20:23 22:18 22:49 23:30 Temp 98.0 98.0 Pulse 70 Resp 18 18 18 B/P (MAP) 137/81 (99) Pulse Ox 97 98 98 O2 Delivery Room Air Room Air Room Air Room Air 07/15/19 07/15/19 07/15/19 07/15/19 02:59 03:03 04:19 06:32 Temp 98.5 98.5 Pulse 57 Resp 18 18 16 18 B/P (MAP) 138/80 (99) Pulse Ox 97 97 97 97 O2 Delivery Room Air Room Air Room Air Room Air 07/15/19 07/15/19 07/15/19 07/15/19 07:00 08:00 11:04 12:20 Temp 98.4 98.0 98.4 98.0 Pulse 66 66 70 Resp 18 18 B/P (MAP) 120/72 (88) 120/72 130/68 (88) Pulse Ox 100 97 O2 Delivery Room Air Room Air Room Air Intake and Output 07/14/19 07/14/19 07/15/19 15:00 23:00 07:00 Intake Total 240 ml 240 ml 800 ml Output Total 900 ml Balance -660 ml 240 ml 800 ml LILI GORMAN MD Jul 15, 2019 16:04
--- NOTE | 2019-07-15 16:48 | NUR ---
Discharge Note: ALBERT HOLCOMB V 2 [facility] Discharge instructions and discharge home medications reviewed with Patient and a copy given. All questions have been answered and understanding verbalized. The following instructions and handouts were given: CP and Cardiac stress test Discontinued IV lines Patient discharged to home with self care via wheelchair
--- NOTE | 2019-07-16 18:11 | DS ---
DATE OF DISCHARGE: 07/15/2019 ADMISSION DIAGNOSIS: Chest pain. DISCHARGE DIAGNOSES: 1. Atypical chest pain. 2. Severe neurofibromatosis. HOSPITAL COURSE: The patient is a pleasant middle-aged female who presented with chest pain. She has neurofibromatosis as well. We admitted the patient, did cardiac monitoring, serial enzymes, serial EKGs. We consulted Cardiology. Her cardiac workup was negative. We discharged her home. I saw and examined her yesterday. She was doing well. Heart tones were normal. Lungs were clear. We discharged. DISPOSITION: Home. ACTIVITY: As tolerated. DIET: Low sodium. MEDICATIONS: Please see MRAD. TOTAL TIME: 34 minutes. LILIA SHIN DO DR: KARTHIKEYAN/paul JOB#: [id number] / [id number]
== END 2019-07-15 17:10 | disposition home or self-care (01) | DRG 392 ==
LOC: ER 18:46 → 2 NORTH 22:23
PROVIDERS: ADMIT Family Medicine; ATTEND Family Medicine
DX: K21.9 Gastro-esophageal reflux disease without esophagitis (principal); I10 Essential (primary) hypertension; G89.29 Other chronic pain; I35.1 Nonrheumatic aortic (valve) insufficiency; M19.90 Unspecified osteoarthritis, unspecified site; Q85.00 Neurofibromatosis, unspecified; Z82.49 Family history of ischemic heart disease and other diseases of the circulatory system; Z83.3 Family history of diabetes mellitus; Z90.710 Acquired absence of both cervix and uterus; Z98.51 Tubal ligation status
CPT/HCPCS: 36415; 71045; 78452; 80053; 80061; 83690; 83735; 83880; 84484; 85025; 85027; 85520; 93005; 93017; 93306; 96374; 96375; 96376; A9500; J1644; J2270; J2405; J2785; 99285-25; G0378